=== PATIENT | female | born 1960 | race Caucasian/White ===

== ENCOUNTER → 2020-11-28 | Outpatient (CLI) | payer BC ==
[~2020-11-28] MED LIST: AEROECLIPSE II1 EACH MC; ALBUTEROL2.5 MG/3 M INH; ATROVENT HFA12.9 GM INH; IPRATROPIU0.2 MG/1 M INH; K-DUR TAB 20 M20 MEQ PO; PREDNISONE20 MG PO; ROBITUSSIN AC480 ML PO; TESSALON PERLE100 MG PO
== END ==
LOC: RAD 12:05
DX: M54.32 Sciatica, left side (principal); M81.0 Age-related osteoporosis without current pathological fracture
CPT/HCPCS: 72110

== ENCOUNTER → 2021-06-27 | Outpatient (CLI) | payer BC | LOC: RAD 12:16 | DX: G57.02 Lesion of sciatic nerve, left lower limb (principal); M81.0 Age-related osteoporosis without current pathological fracture; E03.9 Hypothyroidism, unspecified; R03.0 Elevated blood-pressure reading, without diagnosis of hypertension | CPT/HCPCS: 73502 ==

== ENCOUNTER → 2021-07-04 | Outpatient (CLI) | payer BC | LOC: EXRD 12-27 09:30 → MAMO 12-27 09:30 → EXRD 12-27 10:30 → MAMO 06-08 10:30 → EXRD 11:30 | DX: Z12.31 Encounter for screening mammogram for malignant neoplasm of breast (principal); M81.0 Age-related osteoporosis without current pathological fracture; E03.9 Hypothyroidism, unspecified; G57.02 Lesion of sciatic nerve, left lower limb | CPT/HCPCS: 77063; 77067; 77080 ==

== ENCOUNTER → 2021-10-11 | Outpatient (CLI) | payer BC | LOC: KOH-I 09-29 10:05 | DX: G57.02 Lesion of sciatic nerve, left lower limb (principal); M51.36 Other intervertebral disc degeneration, lumbar region | CPT/HCPCS: 72148 ==